=== PATIENT | female | born 1980 | race Caucasian/White ===

== ENCOUNTER 2022-11-11 11:58 | Outpatient (REF) | payer BC, SELFPAY ==
[2022-11-11 14:43] LABS: Erythrocyte Sedimentation Rate 12 MM/HR (0-20)
[2022-11-15 15:54] LABS: IgA 208 mg/dL (47-310); IgG 1263 mg/dL (600-1640); IgM 171 mg/dL (50-300)
[2022-11-17 13:09] LABS: DNAds, Crithidia Antibody Negative (Negative)
[2022-11-19 13:47] LABS: Anti Nuclear Antibody Screen POSITIVE (NEGATIVE)
== END 2022-11-11 11:59 | disposition home or self-care (01) ==
LOC: HO.LAB 11:58
PROVIDERS: PCP Physician Assistant Medical; Visit Provider Psychiatry & Neurology Neurology
DX: G93.49 Other encephalopathy (principal)
CPT/HCPCS: 36415; 82784; 85652; 86038; 86039; 86255; 86334